=== PATIENT | male | born 1990 | race Caucasian/White ===

== ENCOUNTER 2016-08-07 10:54 | Emergency (ER) | payer SELFPAY ==
[2016-08-07 11:18] VITALS: BMI 45.8
--- NOTE | 2016-08-07 11:20 | EDPRACDOC ---
- General Information Stated Complaint: SINUS PROBLEM Time Seen by Provider: 08/07/16 11:10 Home Medications: Home Medications Acetic Acid 15 ml OU Q4 #1 solution 04/22/14 Amoxicillin 500 mg PO BID #20 capsule 04/22/14 Ibuprofen 200 mg PO Q6H PRN 04/22/14 Benzonatate [Tessalon] 100 mg PO TID #20 per 08/07/16 Pseudoephedrine [Sudafed] 120 mg PO BID #14 crc 08/07/16 Allergies/Adverse Reactions: Allergies Allergy/AdvReac Type Severity Reaction Status Date / Time No Known Allergies Allergy Verified 04/22/14 10:21 - History of Present Illness Onset: 3 DAYS HPI: PT PRESENTS TODAY WITH 3 DAYS OF URI INCLUDING NASAL CONGESTION, SORE THROAT AND COUGH. DENIES FEVER, BUENROSTRO, CP, SHOB, ABD PAIN, N/V/D. STATES MISSED THE LAST 2 DAYS OF WORK AND NEEDS NOTE. Current Symptoms: Reports: Cough, Nasal Symptoms, Sore Throat Shortness of Breath: None Cough: Reports: Non-productive Rhinorrhea: Reports: Clear Ear Symptoms: Reports: None Fever Severity/Quality: Reports: no fever Oral Intake: Normal Urinary Output: Normal Relevant History of: None Associated Signs & Symptoms:: Reports: Cough, Nasal Symptoms, Sore Throat ED Past Medical History - History Reviewed Yes Nurses notes reviewed and agree except as marked - Patient Medical History Psychological History: Reports: Depression. Denies: Substance Use Disorder - Social Medical History Social History: Denies: Other Substance Use EDM Review of Systems - Review of Systems ROS Negative Except as Marked: Yes All systems reviewed and were negative except as marked Constitutional: No Symptoms Reported Eyes: No Symptoms Reported Ears: No Symptoms Reported Throat: Pain Nose: Congestion Respiratory: Cough Cardiovascular: No Symptoms Reported Gastrointestinal: No Symptoms Reported Neurological: No Symptoms Reported Musculoskeletal: No Symptoms Reported Integumentary: No Symptoms Reported - Physical Exam Constitutional: Alert (Awake), No apparent distress Oriented to: Time, Person, Place Last recorded Vital Signs: Oxygen Pulse Oxygen Saturation O2 Device Oxygen Flow Rate Fraction of Inspired Oxygen ( FIO2) - HEENT Head: Normal Eye Exam: Normal Oropharynx: Other (NOTED POSTERIOR NASAL DRAINAGE) Tympanic Membrane: Normal ENT EAC: Normal Nose: Congestion Neck: Normal, Denies Pain, Midline - Respiratory/Cardiovascular Respiratory: Normal - CTA Cardiovascular: Normal - GI Palpation: Normal Tenderness: Non tender - Musculoskeletal Back: Normal Extremities: Normal - Integumentary Skin: Normal Lymphatics: Normal - Neurologic Cerebellar: Normal Mood Description: Normal Thought: Coherent Perception: Normal Decision Time to Discharge: 11:18 - Departure Disposition: Home Condition: Good Final Diagnosis: Upper respiratory infection Qualifiers: URI type: unspecified URI Qualified Code(s): J06.9 - Acute upper respiratory infection, unspecified Instructions: Upper Respiratory Infection (ED) Education/Counseling Given To: Patient Education/Counseling Given Regarding: Diagnosis, Treatment, Follow Up Referrals: None,No Provider [Primary Care Provider] - [facility] [NonStaff] - One Week Prescriptions: New Benzonatate [Tessalon] 100 mg PO TID #20 per Pseudoephedrine [Sudafed] 120 mg PO BID #14 crc No Action Ibuprofen 200 mg PO Q6H PRN PRN Reason: Pain Acetic Acid 15 ml OU Q4 #1 solution Amoxicillin 500 mg PO BID #20 capsule Additional Instructions: REST AND PLENTY OF FLUIDS. IF SYMPTOMS PERSIST PAST 10 DAYS, FOLLOW UP WITH PCP.
[2016-08-07 11:22] VITALS: BP 142/74; PULSE 70; TEMP 98.2
== END 2016-08-07 11:31 | disposition home or self-care (01) ==
LOC: EDMC 10:54
DX: J06.9 Acute upper respiratory infection, unspecified (principal)
CPT/HCPCS: 99282